=== PATIENT | female | born 1955 | race Caucasian/White ===

== ENCOUNTER 2021-02-07 15:37 | Outpatient (REF) | payer MEDICARE, OTHER, SELFPAY ==
--- NOTE | ~2021-02-07 | XR_ITS ---
EXAMINATION: XR WRIST, RIGHT CLINICAL INFORMATION: Pain COMPARISON: None TECHNIQUE: Four views of the right wrist. FINDINGS: Bone alignment is normal. No fracture or dislocation is seen. Joint spaces are normal. Soft tissues are normal. XR/XR wrist RT 2V IMPRESSION: Normal right wrist.
== END 2021-02-07 15:38 | disposition home or self-care (01) ==
LOC: HO.XRAY 15:37
PROVIDERS: PCP Internal Medicine; Visit Provider Internal Medicine
DX: M25.531 Pain in right wrist (principal)
CPT/HCPCS: 73100

== ENCOUNTER 2021-03-26 09:43 | Outpatient (REF) | payer MEDICARE, OTHER, SELFPAY ==
[2021-03-26 11:32] LABS: TSH reflex Free T4 0.02 uIU/mL (0.32-4.0)
[2021-03-26 12:05] LABS: Free T4 (Free Thyroxine) 1.26 ng/dL (0.71-1.85)
== END 2021-03-26 09:44 | disposition home or self-care (01) ==
LOC: HO.LAB 09:43
PROVIDERS: PCP Internal Medicine; Visit Provider Internal Medicine Endocrinology, Diabetes & Metabolism
DX: E03.9 Hypothyroidism, unspecified (principal)
CPT/HCPCS: 36415; 84439; 84443

== ENCOUNTER → 2021-05-29 08:04 | Outpatient (BNVA) | payer MEDICARE, OTHER, SELFPAY | PROVIDERS: PCP Internal Medicine; Visit Provider Physician Assistant | DX: M65.4 Radial styloid tenosynovitis [de Quervain] (principal) | CPT/HCPCS: 20550; 99202; J3300 ==

== ENCOUNTER 2021-06-05 07:44 | Outpatient (RCR) | payer MEDICARE, OTHER, SELFPAY ==
--- NOTE | 2021-06-05 14:36 | MHC.OT.OEV ---
[address] [phone] F: [phone] Occupational Therapy Evaluation Diagnosis: Right Dequervains Disease Date of Onset: 05/29/21 Date of Surgery: Attending Provider: Lennox Grande Prescribed Treatment: Eval and treat MD Follow Up Appointment: History of Current Condition: Pt reports a one year ho right wrist pain, she delayed treatment due to Covid 19 restrictions... 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 Living Situation, Family and/or Social Support: Current Level of Function and Occupation Self Care, Employment, Leisure: Indep with all ADL and homemaking and cat care Currently has 9 cats requiring care, alot of laundry with towels, Pham litter.Transporting towels.. Pain with lifting, managing towels Sleep: WNL Driving: WNL Vision: Balance: Pain Assessment Pain Score: 2 Pain Scale Used: Numeric (0 - 10) Pain Location and Description: 2 ache , right radial wrist Aggravating Factors: Lifting, moving /packing towels Alleviating Factors: Skin and Soft Tissue Assessment Skin and Soft Tissue: Comments: Mild radial wrist edema Nerve assessment Ulnar Nerve: Not Tested Median Nerve: Not Tested Radial Nerve: Not Tested Comments: Sensory Assessment Temperature: Light Touch: WNL Proprioception: Vibration: Comments: Edema Assessment Upper Extremity: Lower Extremity: Comments: right mild circumference at radial styloid, right 5.8 cm....left 5.5 cm Dexterity Assessment Dexterity: WNL Comments: Special Tests Comments: AROM(PROM) Strength Cervical Cervical Flexion: Cervical Extension: Cervical Lateral Flexion: Cervical Rotation: Comments: Shoulder Flexion: Extension: Abduction: Internal Rotation: External Rotation: Comments: Flexion: Extension: Abduction: Internal Rotation: External Rotation: Comments: Elbow Flexion: Extension: Pronation: Supination: Comments: Flexion: Extension: Pronation: Supination: Comments: Wrist Flexion: r 70 l 75 Extension: 55 55 Ulnar Deviation: 30 25 Radial Deviation: 5 15 Comments: Discomfort with radial dev on the right Flexion: Extension: Ulnar Deviation: Radial Deviation: Comments: Thumb Thumb CMC Flexion: Thumb MCP Flexion: Thumb IP Flexion: Radial Abduction: Palmar Abduction: [place] (Kapandji 0-10): Comments: WNL Digits Index MCP: PIP: DIP: Long MCP: PIP: DIP: Ring MCP: PIP: DIP: Small MCP: PIP: DIP: Comments: WNL HO right ring trigger finger and left trigger thumb Gross Grasp: r 35 lb......l 30 lb Lateral Pinch: 10 10 Two-Point Pinch: 6 5 Three-Jaw [place]: 9 8 Comments: Painfree Patient Education Primary Language: Amharic Learning Operations Specialist Required: No Current Knowledge: Understands information with skills for self-management Teaching Method: Demonstration Handouts Verbal Education Needs Identified on Evaluation: How did patient/family demonstrate learning? Patient demonstrates Patient verbalizes Barriers to Learning: None Readiness for Learning: Accepting Who was educated? Patient Comments: Pt ed on wrist protection/ Dequervains precautions ..activitiy modification Oval 8 wear and care for night splint for right trigger finger and left trigger thumb Plan of Care Assessment: Pt is one week s/p injection for right Dequervains with and excellent result. She will benefit from implementing the HEP and jt protection techniques she practiced here today in OT. Printed instructions provided. Skilled OT is not needed at this time. STG Duration: Short Term Goals: NA LTG Duration: Breastfeeding Program Coordinator Goals: NA Frequency and Duration: The patient will be seen NA Treatment Plan: Home Exercise Program Electronically Signed By: Ute Hernandez OT CHT CLT Reviewed/agree with student documentation: N/A Therapist: Please sign and return to therapist, Thank you for your referral.
--- NOTE | 2021-06-05 14:37 | MHC.OT.DC ---
[address] [phone] F: [phone] Occupational Therapy Discharge Note Provider: Lennox Grande Diagnosis: Right Dequervains Disease Date of Surgery: Date of Evaluation: 06/05/21 Date of Discharge: 06/05/21 Treatments to Date: 1 Cancellations to Date: No Shows to Date: Discharge Status: Achieved Goals Improved Function Independent with HEP Discharge Summary: See eval for details Right Dequervains improved after injection last week. Mild edema noted. ROM, strength and function WFL. Pt with unrelated right ring finger trigger and left thumb trigger . I fit and provided Oval 8 right PIPj flexion block for night wear, and left IP jt flexion block. Pt not wearing the aluminum splint provided by her MD. Skilled OT not needed at this time Electronically Signed By: Ute Hernandez OT CHT CLT Reviewed/agree with student documentation: N/A Therapist: Please Sign and return to therapist, thank you for your referral.
== END 2022-01-28 10:52 | disposition home or self-care (01) ==
LOC: HO.OT 07:44
PROVIDERS: PCP Internal Medicine; Visit Provider Physician Assistant
DX: M65.4 Radial styloid tenosynovitis [de Quervain] (principal)
CPT/HCPCS: 97110; 97165

== ENCOUNTER 2021-06-13 08:22 | Outpatient (REF) | payer MEDICARE, OTHER, SELFPAY ==
[2021-06-13 09:56] LABS: Alanine Aminotransferase 14 U/L (0-31); Albumin Level 4.3 g/dL (3.5-5.0); Alkaline Phosphatase 85 U/L (39-117); Anion Gap 10 (12-20); Aspartate Amino Transferase 15 U/L (5-31); Bilirubin Total 0.5 mg/dL (0.0-1.0); Blood Urea Nitrogen 18 mg/dL (9-16); Calcium 9.4 mg/dL (8.4-10.2); Carbon Dioxide 29 mmol/L (22-29); Chloride 107 mmol/L (96-108); Cholesterol 206 mg/dL; Estimated Glomerular Filt Rate > 60; Glucose Fasting 84 mg/dL (60-99); HDL Cholesterol 64 mg/dL; LDL Cholesterol Calculated 130 mg/dl; Potassium 4.6 mmol/L (3.3-5.1); Sodium 141 mmol/L (135-145); Total Protein 6.6 g/dL (6.5-8.0); Triglycerides 61 mg/dL
== END 2021-06-13 08:23 | disposition home or self-care (01) ==
LOC: HO.LAB 08:22
PROVIDERS: PCP Internal Medicine; Referring Provider Internal Medicine; Visit Provider Nurse Practitioner Family
DX: Z13.220 Encounter for screening for lipoid disorders (principal); Z13.1 Encounter for screening for diabetes mellitus
CPT/HCPCS: 36415; 80053; 80061

== ENCOUNTER 2021-07-18 13:01 | Outpatient (REF) | payer MEDICARE, OTHER, SELFPAY ==
--- NOTE | ~2021-07-18 | US_ITS ---
EXAMINATION: ULTRASOUND EXTREMITY NONVASCULAR CLINICAL INFORMATION: Soft tissue soft lump over the right clavicle/shoulder COMPARISON: None TECHNIQUE: Grayscale and color imaging of the soft tissues over the right shoulder performed using a linear transducer. FINDINGS: There is an oval-shaped 1.9 x 1.8 x 0.7 cm hypoechoic lesion just deep to the skin corresponding to palpable abnormality. This demonstrates minimal peripheral vascularity. Ultrasound appearance would be consistent with a lipoma. 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
--- NOTE | ~2021-07-18 | MM_ITS ---
EXAMINATION: BONE DENSITOMETRY CLINICAL INDICATION: Asymptomatic menopausal state. COMPARISON: None (current study represents initial baseline exam). TECHNIQUE: Using a [employer] DXA System (software version: 13.1) manufactured by [employer], dual-energy x-ray absorptiometry was performed of the lumbar spine and left hip. The images are of good technical quality. Summary results are attached. FINDINGS: AP SPINE L1-L4: BMD 0.733 g/cm2, Z-score -1.9, T-score -3.7, osteoporosis. LEFT FEMUR, NECK: BMD 0.656 g/cm2, Z-score -1.1, T-score -2.7, osteoporosis. LEFT FEMUR, TOTAL: BMD 0.726 g/cm2, Z-score -0.8, T-score -2.2, osteopenia. IDENTIFIED RISK FACTORS: Menopause, hysterectomy, family history (parental hip fracture). HISTORY OF FRACTURE: None listed. MEDICATIONS: Calcium supplements or multivitamin, vitamin D. MM/XR DEXA axial skeleton IMPRESSION: 1. DIAGNOSIS: Osteoporosis based on the lowest T-score value of -3.7 in the lumbar spine applying World Health Organization criteria. 2. 10-YEAR FRACTURE RISK PREDICTION, FRAX: According to the guidelines, FRAX calculation should only be performed on patients in the osteopenia bone density category. Therefore, FRAX was not performed on this patient. 3. Treatment Recommendations: NOF guidelines recommend consideration for treatment in postmenopausal women and men age 50 and older presenting with the following: -A hip or vertebral (clinical or morphometric) fracture. -T-score less than or equal to -2.5 at the femoral neck or spine after appropriate evaluation to exclude secondary causes. -Low bone mass at the hip or spine and a 10-year fracture probability by FRAX of greater than or equal to 3% for hip fracture or greater than or equal to 20% for major osteoporotic fracture based on the [place] adapted WHO algorithm. 4. Other Recommendations: All treatment decisions require clinical judgment and consideration of individual patient factors, including patient preferences, comorbidities, previous drug use, risk factors not captured in the FRAX model (e.g. frailty, falls, vitamin D deficiency, increased bone turnover, interval significant decline in bone density) and possible under or overestimation of fracture risk by FRAX. Additional medical evaluation for secondary cause of low bone mineral density may be appropriate. FUTURE SCAN RECOMMENDATION: People with diagnosed cases of osteoporosis or at high risk for fracture should have regular bone mineral density tests. For patients eligible for Medicare, routine testing is allowed once every 2 years. The testing frequency can be increased to one year for patients who have rapidly progressing disease, those who are receiving or discontinuing medical therapy to restore bone mass, or have additional risk factors.
== END 2021-07-18 13:02 | disposition home or self-care (01) ==
LOC: HO.MAMMO 13:01
PROVIDERS: PCP Internal Medicine; Visit Provider Nurse Practitioner Family
DX: Z13.820 Encounter for screening for osteoporosis (principal); R22.9 Localized swelling, mass and lump, unspecified; M81.0 Age-related osteoporosis without current pathological fracture; Z78.0 Asymptomatic menopausal state; Z79.899 Other long term (current) drug therapy; Z98.890 Other specified postprocedural states
CPT/HCPCS: 76882; 77080

== ENCOUNTER → 2021-09-06 09:02 | Outpatient (BNVA) | payer MEDICARE, OTHER, SELFPAY | PROVIDERS: PCP Internal Medicine; Referring Provider Internal Medicine; Visit Provider Surgery | DX: D17.9 Benign lipomatous neoplasm, unspecified (principal) | CPT/HCPCS: 99202 ==

== ENCOUNTER 2022-03-19 10:00 | Outpatient (REF) | payer MEDICARE, OTHER, SELFPAY ==
--- NOTE | 2022-03-19 10:15 | ECG_ITS ---
Test Reason : SYNCOPE Blood Pressure : / mmHG Vent. Rate : 067 BPM Atrial Rate : 067 BPM P-R Int : 130 ms QRS Dur : 076 ms QT Int : 396 ms P-R-T Axes : 028 019 030 degrees QTc Int : 418 ms Normal sinus rhythm Normal ECG No previous ECGs available Referred By: Armando Srinivasan Electronically Signed By:HENRY WAGNER MD
[2022-03-19 10:36] LABS: Basophils Percent Auto 0.8 % (0-2); Eosinophils Absolute Auto 0.3 X10*3/uL (0.0-0.4); Eosinophils Percent Auto 5.2 % (0-4); Hematocrit 43.2 % (37.0-47.0); Hemoglobin 14.2 g/dl (12.0-16.0); Imm Gran Abs Auto 0.01 X10*3/uL (0.00-0.03); Imm Gran Pct Auto 0.2 % (0.0-0.4); Lymphocytes Absolute Auto 1.8 X10*3/uL (1.2-4.9); Lymphocytes Percent Auto 36.6 % (20-40); MANUAL DIFF FLAG NO; Mean Corpuscular HGB Conc 32.9 g/dl (31.0-35.0); Mean Corpuscular Hemoglobin 29.1 pg (27.0-33.0); Mean Corpuscular Volume 88.5 fL (80.0-98.0); Mean Platelet Volume 10.7 fL (9.4-12.3); Monocytes Absolute Auto 0.6 X10*3/uL (0.1-1.2); Monocytes Percent Auto 11.7 % (2-11); Neutrophils Absolute Auto 2.3 x10*3/uL (2.0-8.3); Neutrophils Percent Auto 45.5 % (45-73); Platelet Count 255 X10*3/uL (160-400); Red Blood Count 4.88 X10*6/uL (4.20-5.50); Red Cell Distribution Width 13.6 % (11.0-16.0)
[2022-03-19 12:28] LABS: Anion Gap 13 (12-20); Blood Urea Nitrogen 17 mg/dL (9-16); Calcium 9.7 mg/dL (8.4-10.2); Carbon Dioxide 25 mmol/L (22-29); Chloride 107 mmol/L (96-108); Estimated Glomerular Filt Rate > 60; Glucose Random 104 mg/dL (60-115); Potassium 4.2 mmol/L (3.3-5.1); Sodium 141 mmol/L (135-145)
== END 2022-03-19 10:01 | disposition home or self-care (01) ==
LOC: HO.LAB 10:00
PROVIDERS: PCP Internal Medicine; Visit Provider Internal Medicine
DX: R55 Syncope and collapse (principal); R51.9 Headache, unspecified; Z13.0 Encounter for screening for diseases of the blood and blood-forming organs and certain disorders involving the immune mechanism
CPT/HCPCS: 36415; 80048; 85025; 93005

== ENCOUNTER 2022-05-22 10:03 | Outpatient (REF) | payer MEDICARE, OTHER, SELFPAY | END 2022-05-22 10:04 | disposition home or self-care (01) | LOC: HO.WFDLDS 10:03 | PROVIDERS: Visit Provider Internal Medicine Endocrinology, Diabetes & Metabolism | DX: E03.9 Hypothyroidism, unspecified (principal) | CPT/HCPCS: 36415; 84443 ==

== ENCOUNTER 2023-05-18 08:35 | Outpatient (REF) | payer MEDICARE, OTHER, SELFPAY ==
[2023-05-18 11:21] LABS: MANUAL DIFF FLAG NO
[2023-05-18 12:06] LABS: Basophils Absolute Auto 0.1 X10*3/uL (0.0-0.2); Basophils Percent Auto 1.5 % (0-2); Eosinophils Absolute Auto 0.2 X10*3/uL (0.0-0.4); Eosinophils Percent Auto 3.6 % (0-4); Hematocrit 42.2 % (37.0-47.0); Hemoglobin 13.8 g/dl (12.0-16.0); Lymphocytes Absolute Auto 1.7 X10*3/uL (1.2-4.9); Mean Corpuscular HGB Conc 32.7 g/dl (31.0-35.0); Mean Corpuscular Hemoglobin 29.3 pg (27.0-33.0); Mean Corpuscular Volume 89.6 fL (80.0-98.0); Mean Platelet Volume 11.4 fL (9.4-12.3); Monocytes Absolute Auto 0.6 X10*3/uL (0.1-1.2); Monocytes Percent Auto 13.3 % (2-11); Neutrophils Absolute Auto 1.6 x10*3/uL (2.0-8.3); Neutrophils Percent Auto 39.6 % (45-73); Platelet Count 252 X10*3/uL (160-400); Red Blood Count 4.71 X10*6/uL (4.20-5.50); Red Cell Distribution Width 13.8 % (11.0-16.0); White Blood Count 4.1 X10*3/uL (4.8-10.8)
[2023-05-18 12:23] LABS: Alanine Aminotransferase 20 U/L (0-31); Albumin Level 4.2 g/dL (3.5-5.0); Alkaline Phosphatase 72 U/L (39-117); Anion Gap 11 (12-20); Aspartate Amino Transferase 20 U/L (5-31); Bilirubin Total 0.7 mg/dL (0.0-1.0); Blood Urea Nitrogen 13 mg/dL (9-16); Calcium 9.6 mg/dL (8.4-10.2); Carbon Dioxide 24 mmol/L (22-29); Chloride 109 mmol/L (96-108); Cholesterol 213 mg/dL (<200); Estimated Glomerular Filt Rate > 60; Glucose Fasting 83 mg/dL (60-99); HDL Cholesterol 63 mg/dL (>40); LDL Cholesterol Calculated 136 mg/dL (<100); Potassium 4.1 mmol/L (3.3-5.1); Sodium 140 mmol/L (135-145); Total Protein 6.9 g/dL (6.5-8.0); Triglycerides 73 mg/dL (<150)
[2023-05-18 12:29] LABS: Thyroid Stimulating Hormone 1.38 uIU/mL (0.32-4.0)
== END 2023-05-18 08:36 | disposition home or self-care (01) ==
LOC: HO.WFDLDS 08:35
PROVIDERS: Visit Provider Internal Medicine
DX: Z13.0 Encounter for screening for diseases of the blood and blood-forming organs and certain disorders involving the immune mechanism (principal); I10 Essential (primary) hypertension; E03.9 Hypothyroidism, unspecified; E78.5 Hyperlipidemia, unspecified
CPT/HCPCS: 36415; 80053; 80061; 84443; 85025

== ENCOUNTER 2023-05-22 09:58 | Outpatient (AMB) | payer MEDICARE, OTHER, SELFPAY ==
--- NOTE | 2023-05-22 10:01 | AM.OFFVISMDC ---
Intake Vital Signs 05/22/23 10:06 Height 5 ft 1 in Weight 129 lb 8 oz BMI 24.5 BP 100/70 Blood Pressure Location Lt brachial Position Sitting Pulse 60 Pulse Source Pulse Oximeter Pulse Oximetry (%) 99 Oxygen Delivery Method Room Air Intake Visit Reasons: SWV Intake Note: Patient is here for an Annual Wellness Visit. 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 Supervisor Propellant Charge Loading: Supervisor Propellant Charge Loading offered & declined Accompanied by: Self / Same As Patient Allergies acetaminophen [From Percocet] Allergy (Unknown, Verified 05/22/23 10:05) Palpitations erythromycin base Allergy (Unknown, Verified 05/22/23 10:05) Nausea oxycodone [From Percocet] Allergy (Unknown, Verified 05/22/23 10:05) Palpitations Medication List - Last Reconciled 05/22/23 by Armando Srinivasan MD citalopram 20 mg PO DAILY Synthroid (levothyroxine) 100 mcg PO I tab 6 days a week and 1.5 tabs 1 day a week; no subs 90 days NS HPI SWV HPI Details hypothyroidism and depression on rx; doing well PFSH Medical History Lump of skin Post-menopausal Screening for diabetes mellitus Screening for hyperlipidemia Surgical History History of colonoscopy History of excision of mass History of partial hysterectomy History of thyroidectomy Family History Father No problems noted. Mother Substance use disorder Social History Housing: House Alcohol intake: never Patient Tobacco Use Status: Never used Tobacco e-Cigarette/Vaping Use: Never Used Second Hand Smoke Exposure: No service: No Current occupational status: retired Cognitive needs: No Hearing needs: No Vision needs: No Questionnaire Medicare Wellness Checkup [age] 65-68 What gender do you identify with?: female During the past 4 weeks, how much have you been bothered by emotional problems such as feeling anxious, depressed, irritable, sad or downhearted, and blue?: not at all During the past 4 weeks, has your physical & emotional health limited your social activities with family, friends, neighbors, or groups?: not at all During the past 4 weeks, how much bodily pain have you generally had?: moderate pain During the past 4 weeks, was someone available to help you if you needed & wanted help?: yes, as much as I wanted During the past 4 weeks, what was the hardest physical activity you could do for at least 2 minutes?: heavy Can you get to places out of walking distance without help? (For eg., can you travel alone on buses, taxis or drive your car?): Yes Can you go shopping for groceries or clothes without someone's help?: Yes Can you prepare your own meals?: Yes Can you do your housework without help?: Yes Because of any health problems, do you need the help of another person with your personal care needs such as eating, bathing, dressing or getting around the house?: No Can you handle your own money without help?: Yes During the past 4 weeks, how would you rate your health in general?: very good During the past 4 weeks how have things been going for you?: very well; could hardly better Are you having difficulties driving your car?: no Do you always fasten your seat belt when you are in a car?: yes, usually During past 4 weeks, have you been bothered by the following: never: Falling or dizzy when standing up, Sexual problems?, Trouble eating well?, Teeth or denture problems?, Problems using the telephone? and Tiredness or fatigue? Have you fallen 2 or more times in the past year?: No Are you afraid of falling?: No Are you a smoker?: no During the past 4 weeks, how many drinks of wine, beer, or other alcoholic beverages did you have?: no alcohol at all Do you exercise for about 20 minutes 3 or more times a week?: yes, all the time Have you been given information to help with the following?: yes: Keeping track of your medications? and no: Hazards in your house that might hurt you? How often do you have trouble taking medicines the way you have been told to take them?: I always take medicine as prescribed How confident are you that you can control & manage most of your health problems?: very confident What is your race?: White Mini Mental State Exam (MMSE) Orientation What is the (year) (season) (date) (day) (month)?: year, season, date, day and month Where are we (state) (county) (town or city) (hospital) (floor)?: state, county, town or city, hospital/clinic and floor Score Score: 10 Activity of Daily Living Bathing - sponge bath, tub bath or shower: receives no assistance (gets in/out by self, if usual bathing means Dressing - getting clothes from closets & drawers, including inner/outer garments & fasteners.: gets clothes & gets completely dressed without help Toileting - going to the 'toilet room' for urine/bowel elimination & cleaning self/arranging clothes: goes to toilet room, cleans self, arranges clothes without help Transfer: moves in & out of bed and chair without help (may use support object) Continence: controls urination/bowel movements completely by self Feeding: feeds self without help Total Score: 0 Using telephone: independent Traveling: independent Shopping: independent Preparing meals: independent Housework: independent Taking medicine: independent Managing money: independent PHQ-9 Over the last 2 weeks, how often have you been bothered by any of the following problems? 1. Little interest or pleasure in doing things: not at all 2. Feeling down, depressed, or hopeless: not at all 3. Trouble falling or staying asleep, or sleeping too much: not at all 4. Feeling tired or having little energy: not at all 5. Poor appetite or overeating: not at all 6. Feeling bad about yourself - or that you are a failure or have let yourself or your family down: not at all 7. Trouble concentrating on things, such as reading the newspaper or watching television: not at all 8. Moving or speaking so slowly that other people could have noticed. Or the opposite - being so fidgety or restless that you have been moving around a lot more than usual: not at all 9. Thoughts that you would be better off or of hurting yourself in some way: not at all Total score: 0 Depression Screening Interpretation: Negative 30861 - PHQ-9 Billing: Yes Source: Developed by Drs. Willie Brown, Kyra Tran, Kobi Grande and colleagues, with an educational seb from [employer]. Thrive Questionnaire Date Thrive assessed: 05/22/23 I am a: Patient What is your living situation today?: I have a steady place to live Within the past 12 months, did the food you bought not last and you didn't have the money to get more?: Never true Within the past 12 months, did you worry whether your food would run out before you got money to buy more?: Never true Do you have trouble paying for medicines?: No Do you have trouble getting transportation to medical appointments?: No Do you have trouble paying your heating and electricity bill?: No Do you have trouble taking care of your child, family member or friend?: No Do you have trouble with day-to-day activities such as bathing, preparing meals, shopping, managing finances, etc.?: No Are you currently unemployed and looking for a job?: No Are you interested in more education?: No Currently or been in a relationship where the following occur: no concerns reported BRI-7 AMB Questionnaire BRI-7 Date BRI - 7 assessed: 05/22/23 Feeling nervous, anxious, or on edge: 0 = Not at all Not being able to stop or control worryin = Not at all Worrying too much about different things: 0 = Not at all Trouble relaxin = Not at all Being so restless that it is hard to sit still: 0 = Not at all Becoming easily annoyed or irritable: 0 = Not at all Feeling afraid as if something awful might happen: 0 = Not at all Total BRI-7 score (0-4 normal; 5-9 mild; 10-14 moderate; 15-21 severe): 0 Source: Developed by Drs. Willie Brown, Kyra Tran, Kobi Grande and colleagues, with an educational seb from [employer]. BRI-7 Assessment Billing BRI-7 Assessment Tool: BRI-7 Assessment 76755 AUDIT C Alcohol Use Questionnaire (AUDIT-C) 1. How often do you have a drink containing alcohol?: Never Total Score: 0 Review of Systems Const Denies chills, Denies fatigue, Denies headache(s) and Denies weight loss Eyes Denies change in vision, Denies diplopia and Denies eye pain ENT Reports Normal hearing present, Denies vertigo, Denies dizziness, Denies headache(s) and Denies nasal discharge Card Denies chest pain, Denies rapid heart rate and Denies dyspnea on exertion Resp Denies chest congestion, Denies cough, Denies pain with cough and Denies dyspnea on exertion GI Denies abdominal pain, Denies hematochezia and Denies change in bowel habits Musc Denies myalgias, Denies arthralgias and Denies joint swelling Skin/Breast Denies lesions and Denies unusual bruising Neuro Reports Normal hearing present, Denies vertigo, Denies dizziness, Denies headache(s) and Denies focal weakness Endo Denies fatigue Physical Exam Vital Signs: Last Vital Signs Pulse 60 05/22/23 10:06 BP 100/70 05/22/23 10:06 Pulse Ox 99 05/22/23 10:06 Oxygen Delivery Method Room Air 05/22/23 10:06 BMI result Body Mass Index 24.5 Neuro Cranial nerves: Yes Normal hearing present Assessment & Plan Assessment & Plan (1) Encounter for initial annual wellness visit (AWV) in Medicare patient: Code(s): Z00.00 - Encounter for general adult medical examination without abnormal findings Plan: xiang (2) Hypothyroidism: Code(s): E03.9 - Hypothyroidism, unspecified Plan: stable; same rx (3) Depression: Code(s): F32.9 - Major depressive disorder, single episode, unspecified Plan: stable; same rx Orders: Orders Thyroid Stimulating Hormone Today E03.9 - Hypothyroidism, unspecified Quality Reporting (2019) Depression/Bipolar (159/160/161/177) PHQ-9: Total score: 0 Coding Level of Care Code Medicare Subsequent (G0439) Diagnoses Encounter for initial annual wellness visit (AWV) in Medicare patient Z00.00 Hypothyroidism E03.9 Depression F32.9 CPT Codes Advance Care Planning - Advance Care Planning discussion: On file, no changes ([id number]) Additional Codes BRI-7 Assessment Billing - BRI-7 Assessment Tool: BRI-7 Assessment 95197 ([id number]) Advance Care Planning Advance Care Planning discussion: On file, no changes Forms completed: Health Care Proxy
[2023-05-22 10:06] VITALS: BP 100/70; PULSE 60; O2SAT 99; BMI 24.5
== END 2023-05-22 11:12 | disposition home or self-care (01) ==
PROVIDERS: Visit Provider Internal Medicine
DX: Z00.00 Encounter for general adult medical examination without abnormal findings (principal); E03.9 Hypothyroidism, unspecified; F33.9 Major depressive disorder, recurrent, unspecified; Z90.711 Acquired absence of uterus with remaining cervical stump
CPT/HCPCS: 1123F; G0439

== ENCOUNTER 2023-12-14 14:03 | Outpatient (AMB) | payer MEDICARE, OTHER, SELFPAY ==
[2023-12-14 14:04] VITALS: BP 126/70; PULSE 75; O2SAT 98; BMI 24.9
--- NOTE | 2023-12-14 14:04 | A.OFFPC_ITS ---
Vital Signs 12/14/23 14:04 Height 5 ft 1 in Weight 132 lb BMI 24.9 BP 126/70 Blood Pressure Location Lt brachial Position Sitting Pulse 75 Pulse Source Pulse Oximeter Pulse Oximetry (%) 98 Oxygen Delivery Method Room Air Intake Visit Reasons: pain lower left quadrant Dish Technician Required: No Progressive Assembler And Fitter: Not Required per policy Accompanied by: Self / Same As Patient Allergies acetaminophen [From Percocet] Allergy (Unknown, Verified 12/14/23 14:04) Palpitations erythromycin base Allergy (Unknown, Verified 12/14/23 14:04) Nausea oxycodone [From Percocet] Allergy (Unknown, Verified 12/14/23 14:04) Palpitations Medication List - Last Reconciled 12/15/23 by Armando Srinivasan MD amoxicillin-pot clavulanate 875-125 mg 1 tab PO BID citalopram 20 mg PO DAILY Synthroid (levothyroxine) 100 mcg PO I tab 6 days a week and 1.5 tabs 1 day a week; no subs 90 days NS Tobacco use date assessed: 12/14/23 Fall risk assessment: No Falls in past year Last assessed Fall Risk: 12/14/23 Dental Screening Dental Screen Date: 12/14/23 Did you have a dental visit in the last 12 months?: Yes Did you have a dental problem in the last 6 months where you did not have access to dental care?: No Was dental information given to patient?: Patient has dentist HPI pain lower left quadrant HPI Details LLQ abd pain and loose stoolos for a few weeks; better on rx PFSH Medical History Lump of skin Post-menopausal Screening for diabetes mellitus Screening for hyperlipidemia Surgical History History of excision of mass History of colonoscopy History of thyroidectomy History of partial hysterectomy Family History Father No problems noted. Mother Substance use disorder Social History Housing: House Alcohol intake: never Patient Tobacco Use Status: Never used Tobacco e-Cigarette/Vaping Use: Never Used Second Hand Smoke Exposure: No service: No Current occupational status: retired Cognitive needs: No Hearing needs: No Vision needs: No Questionnaire PHQ-9 Over the last 2 weeks, how often have you been bothered by any of the following problems? 1. Little interest or pleasure in doing things: not at all 2. Feeling down, depressed, or hopeless: not at all 3. Trouble falling or staying asleep, or sleeping too much: not at all 4. Feeling tired or having little energy: not at all 5. Poor appetite or overeating: not at all 6. Feeling bad about yourself - or that you are a failure or have let yourself or your family down: not at all 7. Trouble concentrating on things, such as reading the newspaper or watching television: not at all 8. Moving or speaking so slowly that other people could have noticed. Or the opposite - being so fidgety or restless that you have been moving around a lot more than usual: not at all 9. Thoughts that you would be better off or of hurting yourself in some way: not at all Total score: 0 Depression Screening Interpretation: Negative Depression Screening Done: Yes 68096 - PHQ-9 Billing: Yes Source: Developed by Drs. Willie Brown, Kyra Tran, Kobi Grande and colleagues, with an educational seb from [employer]. Thrive Questionnaire Date Thrive assessed: 12/14/23 I am a: Patient What is your living situation today?: I have a steady place to live Within the past 12 months, did the food you bought not last and you didn't have the money to get more?: Never true Within the past 12 months, did you worry whether your food would run out before you got money to buy more?: Never true Do you have trouble paying for medicines?: No Do you have trouble getting transportation to medical appointments?: No Do you have trouble paying your heating and electricity bill?: No Do you have trouble taking care of your child, family member or friend?: No Do you have trouble with day-to-day activities such as bathing, preparing meals, shopping, managing finances, etc.?: No Are you currently unemployed and looking for a job?: No Are you interested in more education?: No Please select the resources that you would like help with: None THRIVE Score: 0 AUDIT C Alcohol Use Questionnaire (AUDIT-C) 1. How often do you have a drink containing alcohol?: Never Total Score: 0 BRI-7 AMB Questionnaire BRI-7 Date BRI - 7 assessed: 12/14/23 Feeling nervous, anxious, or on edge: 0 = Not at all Not being able to stop or control worryin = Not at all Worrying too much about different things: 0 = Not at all Trouble relaxin = Not at all Being so restless that it is hard to sit still: 0 = Not at all Becoming easily annoyed or irritable: 0 = Not at all Feeling afraid as if something awful might happen: 0 = Not at all Total BRI-7 score (0-4 normal; 5-9 mild; 10-14 moderate; 15-21 severe): 0 Source: Developed by Drs. Willie Brown, Kyra Tran, Kobi Grande and colleagues, with an educational seb from [employer]. Review of Systems Const Denies chills, Denies headache(s) and Denies weight loss ENT Denies headache(s) Card Denies chest pain, Denies syncope, Denies irregular heart rhythm and Denies dyspnea Resp Denies chest congestion, Denies cough and Denies dyspnea GI Denies nausea and Denies vomiting Musc Denies deformity and Denies joint swelling Neuro Denies syncope and Denies headache(s) Physical exam (Primary Care) Vital Signs: Last Vital Signs Pulse 75 12/14/23 14:04 BP 126/70 12/14/23 14:04 Pulse Ox 98 12/14/23 14:04 Oxygen Delivery Method Room Air 12/14/23 14:04 BMI result Body Mass Index 24.9 Tobacco/Smoking Status: Tobacco use Status Tobacco use date assessed 12/14/23 12/14/23 14:09 Patient Tobacco Use Status Never used Tobacco 12/14/23 14:09 e-Cigarette/Vaping Use Never Used 12/14/23 14:09 PHQ-9: PHQ-9 Score PHQ-9: Total score 0 12/14/23 14:09 Depression Screening Interpretation: Negative Thrive Assessment: Date of Thrive Assessment Date Thrive assessed 12/14/23 12/14/23 14:09 Const General: cooperative, comfortable, no acute distress and alert Neck Neck: Yes no lymphadenopathy Thyroid: Thyroid normal Resp Effort & Inspection: normal respiratory effort Auscultation: clear to auscultation bilaterally Percussion: percussion normal Cardio Jugular venous distension: no JVD Palpation: normal PMI Rate: regular rate Rhythm: regular rhythm Heart sounds: S1 normal heart sound present and S2 normal heart sound present GI Inspection: Yes normal to inspection Palpation (GI): No hepatosplenomegaly present Skin General skin exam: no rashes or lesions noted Extrem General: Yes no clubbing, cyanosis or edema Assessment and Plan Assessment & Plan (1) Diverticulitis: Code(s): K57.92 - Diverticulitis of intestine, part unspecified, without perforation or abscess without bleeding Plan: labs US and rx; gi ref Orders: Orders Basic Metabolic Panel 12/14/23 K57.92 - Diverticulitis of intestine, part unspecified, without perforation or abscess without bleeding US abdomen complete 12/14/23 R10.9 - Unspecified abdominal pain Complete Blood Count Auto Diff 12/14/23 D64.9 - Anemia, unspecified Referrals Gastroenterology Referral K57.92 - Diverticulitis of intestine, part unspecified, without perforation or abscess without bleeding Medications: New amoxicillin-pot clavulanate 875-125 mg 1 tab PO BID 20 tabs 0RF Coding Level of Care Code Est Pt Level 3 (15872) Diagnoses Diverticulitis K57.92
== END 2023-12-14 14:25 | disposition home or self-care (01) ==
PROVIDERS: PCP Internal Medicine; Visit Provider Internal Medicine
DX: R10.32 Left lower quadrant pain (principal); R19.7 Diarrhea, unspecified
CPT/HCPCS: 99214

== ENCOUNTER 2023-12-14 14:31 | Outpatient (REF) | payer MEDICARE, OTHER, SELFPAY ==
[2023-12-14 14:45] LABS: MANUAL DIFF FLAG NO
[2023-12-14 14:50] LABS: Basophils Absolute Auto 0.1 X10*3/uL (0.0-0.2); Eosinophils Absolute Auto 0.1 X10*3/uL (0.0-0.4); Eosinophils Percent Auto 2.1 % (0-4); Hematocrit 40.7 % (37.0-47.0); Hemoglobin 13.7 g/dl (12.0-16.0); Imm Gran Abs Auto 0.01 X10*3/uL (0.00-0.03); Imm Gran Pct Auto 0.2 % (0.0-0.4); Lymphocytes Absolute Auto 1.6 X10*3/uL (1.2-4.9); Lymphocytes Percent Auto 31.5 % (20-40); Mean Corpuscular HGB Conc 33.7 g/dl (31.0-35.0); Mean Corpuscular Hemoglobin 29.3 pg (27.0-33.0); Mean Corpuscular Volume 87.2 fL (80.0-98.0); Mean Platelet Volume 9.9 fL (9.4-12.3); Monocytes Absolute Auto 0.5 X10*3/uL (0.1-1.2); Monocytes Percent Auto 9.6 % (2-11); Neutrophils Absolute Auto 2.9 x10*3/uL (2.0-8.3); Neutrophils Percent Auto 55.6 % (45-73); Platelet Count 267 X10*3/uL (160-400); Red Blood Count 4.67 X10*6/uL (4.20-5.50); Red Cell Distribution Width 13.4 % (11.0-16.0); White Blood Count 5.2 X10*3/uL (4.8-10.8)
[2023-12-14 15:31] LABS: Anion Gap 12 (12-20); Blood Urea Nitrogen 15 mg/dL (9-16); Carbon Dioxide 25 mmol/L (22-29); Chloride 109 mmol/L (96-108); Estimated Glomerular Filt Rate > 60; Glucose Random 90 mg/dL (60-115); Potassium 4.2 mmol/L (3.3-5.1); Sodium 142 mmol/L (135-145)
[2023-12-14 15:52] LABS: Thyroid Stimulating Hormone 0.27 uIU/mL (0.32-4.0)
== END 2023-12-14 14:32 | disposition home or self-care (01) ==
LOC: HO.LAB 14:31
PROVIDERS: PCP Internal Medicine; Visit Provider Internal Medicine
DX: K57.92 Diverticulitis of intestine, part unspecified, without perforation or abscess without bleeding (principal); D64.9 Anemia, unspecified; E03.9 Hypothyroidism, unspecified
CPT/HCPCS: 36415; 80048; 84443; 85025

== ENCOUNTER 2023-12-16 09:17 | Outpatient (REF) | payer MEDICARE, OTHER, SELFPAY ==
--- NOTE | ~2023-12-16 | US_ITS ---
EXAMINATION: US ABDOMEN COMPLETE CLINICAL INFORMATION: Unspecified abdominal pain COMPARISON: None available. TECHNIQUE: Real-time imaging of the abdominal viscera. FINDINGS: PANCREAS: Normal. ABDOMINAL AORTA: The proximal, mid, and distal segments are normal in caliber. INFERIOR VENA CAVA: Visualized portions are normal. LIVER: Normal. The liver is normal in size. The liver contour is normal. Parenchymal echogenicity is normal. No focal hepatic lesion. There is no intrahepatic biliary duct dilatation seen. GALLBLADDER: Normal. The gallbladder is physiologically distended without evidence of stones, sludge, polyps, wall thickening or pericholecystic fluid. Sonographic Caal sign is negative. COMMON BILE DUCT: Normal in caliber measuring 0.4 cm in diameter. RIGHT KIDNEY: Normal. No hydronephrosis. No renal calculi or focal parenchymal lesions. The kidney measures 10.6 cm in maximum dimension. LEFT KIDNEY: Normal. No hydronephrosis. No renal calculi or focal parenchymal lesions. The kidney measures 9.5 cm in maximum dimension. SPLEEN: Normal. The spleen measures 10.9 cm in maximum dimension. FREE FLUID: None. ADDITIONAL FINDINGS: Area of pain in the left lower quadrant demonstrates no focal mass or collection. US/US abdomen complete IMPRESSION: 1. Unremarkable abdominal ultrasound. 2. Area of pain in the left lower quadrant demonstrates no focal mass or collection.
== END 2023-12-16 09:18 | disposition home or self-care (01) ==
LOC: HO.US 09:17
PROVIDERS: PCP Internal Medicine; Visit Provider Internal Medicine
DX: R10.9 Unspecified abdominal pain (principal)
CPT/HCPCS: 76700

== ENCOUNTER 2024-04-04 08:44 | Outpatient (REF) | payer MEDICARE, OTHER, SELFPAY ==
[2024-04-04 11:12] LABS: Anion Gap 9 (12-20); Blood Urea Nitrogen 13 mg/dL (9-16); Calcium 9.3 mg/dL (8.4-10.2); Carbon Dioxide 27 mmol/L (22-29); Chloride 110 mmol/L (96-108); Estimated Glomerular Filt Rate > 60; Glucose Random 88 mg/dL (60-115); Potassium 4.2 mmol/L (3.3-5.1); Sodium 142 mmol/L (135-145)
== END 2024-04-04 08:45 | disposition home or self-care (01) ==
LOC: HO.WFDLDS 08:44
PROVIDERS: Visit Provider Internal Medicine
DX: R10.9 Unspecified abdominal pain (principal)
CPT/HCPCS: 36415; 80048

== ENCOUNTER 2024-04-08 06:15 | Outpatient (REF) | payer MEDICARE, OTHER, SELFPAY ==
--- NOTE | ~2024-04-08 | CT_ITS ---
EXAMINATION: CT ABDOMEN AND PELVIS WITH CONTRAST CLINICAL INFORMATION: Abdominal pain COMPARISON: Abdominal ultrasound 12/16/2023 TECHNIQUE: Multidetector volumetric images were obtained from the superior aspect of the liver through the pubic symphysis following administration 85 mL of Omnipaque 350 intravenous contrast. Sagittal and coronal reformatted images were obtained on the technologist's workstation. Oral contrast: No This CT examination was performed using dose optimization techniques as appropriate, variously including the following: *Automated exposure control *Adjustment of mA and/or kV according to patient size (this includes techniques or standardized protocols for targeted exams where dose is matched to indication/reason for exam; i.e. extremities or head) *Use of iterative reconstruction technique DLP: 284 mGy-cm FINDINGS: LUNG BASES: The visualized lung bases are unremarkable. LIVER, GALLBLADDER, AND BILIARY TREE: The liver is normal in size, shape, and attenuation. There is a 5 mm water density hypoattenuating lesion consistent with a benign cyst. No suspicious solid focal hepatic lesion or biliary ductal dilatation is present. The gallbladder is unremarkable with no evidence of radiopaque gallstones, gallbladder wall thickening, or obvious pericholecystic inflammatory changes. PANCREAS: Unremarkable. SPLEEN: Unremarkable. ADRENAL GLANDS: Unremarkable. KIDNEYS AND URETERS: The kidneys are normal in size, shape, and attenuation. No hydronephrosis, hydroureter, or calculi seen. No perinephric stranding. BLADDER: Unremarkable. GASTROINTESTINAL TRACT: The small and large bowel are unremarkable aside from colonic diverticula without diverticulitis. The appendix is unremarkable. ABDOMINAL WALL: No significant hernia is appreciated. LYMPH NODES: No retroperitoneal lymphadenopathy. VASCULAR: Unremarkable. PELVIC VISCERA: The uterus is not seen. An abnormal adnexal mass is not detected. No free intraperitoneal fluid is present. OSSEOUS STRUCTURES: There is a scoliosis convex to the left with minimal degenerative changes. No bony destructive lesions. CT/CT abdomen pelvis w IV con IMPRESSION: A cause for the patient's abdominal pain has not been found. Incidental findings as described above. Fleischner guidelines were followed.
[2024-04-08] MEDS: Barium Sulfate Oral (Berry) 450 ML ORAL.SUSP 900 ML PO (08:58)
[2024-04-08] MEDS: iohexoL 350 MG/ML 100 ML INFUS..BTL 85 ML IV (08:59)
== END 2024-04-08 06:16 | disposition home or self-care (01) ==
LOC: HO.CT 06:15
PROVIDERS: PCP Internal Medicine; Visit Provider Internal Medicine
DX: R10.9 Unspecified abdominal pain (principal)
CPT/HCPCS: 74177; Q9967

== ENCOUNTER 2024-08-03 08:52 | Day surgery (SDC) | payer MEDICARE, OTHER, SELFPAY ==
[2024-08-01 14:17] VITALS: BMI 21.6
--- NOTE | 2024-08-02 08:29 | HO.ANESPROP2 ---
Documented by User: Lexii Poe NP 08/02/24 08:30 HPI - Anesthesia Eval Consult details Narrative: 68yo F for Colonoscopy PMFSH Active Problems Active Problems: All Active Problems Diverticulitis (Acute) Encounter for initial annual wellness visit (AWV) in Medicare patient (Acute) Hypothyroidism (Acute) Encounter for subsequent annual wellness visit (AWV) in Medicare patient (Acute) Intermittent palpitations (Acute) Lipoma (Acute) De Quervain's disease (radial styloid tenosynovitis) (Acute) Adult general medical exam (Acute) Screening for colon cancer (Acute) Screening for hyperlipidemia (Acute) Screening for diabetes mellitus (Acute) Depression (Acute) Wrist pain (Acute) Lump of skin (Acute) Post-menopausal (Acute) Past Medical History Medical History Diverticulitis Hypothyroid Anxiety and depression Lump of skin Post-menopausal Family History Family History Father No problems noted. Mother Substance use disorder Surgical History Surgical History History of excision of mass History of colonoscopy History of thyroidectomy History of partial hysterectomy Social History Social History (Updated 08/01/24 @ 14:19 by Sasha Chávez RN) Household Members: Spouse Housing: House Are you a primary health care manager to a significant other at home: No Alcohol intake: never Patient Tobacco Use Status: Never used Tobacco e-Cigarette/Vaping Use: Never Used Second Hand Smoke Exposure: No Use of substances other than those prescribed or required for medical reasons: No Have you been hit, kicked, punched, or otherwise hurt by someone within the past year? If so, by whom?: No Are you DNR?: No Advance Directives: No Advance Directives Information Provided: Yes Recently lost weight without trying: No Nutrition Risks: No Nutritional Risk service: No Current occupational status: retired Cognitive needs: No Hearing needs: No Vision needs: No Meds Allergies Allergy/AdvReac Type Severity Reaction Status Date / Time erythromycin base Allergy Intermediate Nausea Verified 08/01/24 14:17 oxycodone [From Percocet] Allergy Intermediate Palpitation Verified 08/01/24 14:17 s Exam Height,Weight and Vital Signs: Height 5 ft 5 in Weight 58.967 kg Assessment and Plan Assessment Anesthesia Assessment: Chart Reviewed Documented by User: Imelda Pretty MD 08/03/24 09:56 [facility] Past Medical History Medical History Diverticulitis Hypothyroid Anxiety and depression Lump of skin Post-menopausal Family History Family History Father No problems noted. Mother Substance use disorder Family history of problems with anesthesia: No Surgical History Surgical History History of excision of mass History of colonoscopy History of thyroidectomy History of partial hysterectomy History of Problems with Anesthesia: No Social History Social History (Updated 08/01/24 @ 14:19 by Sasha Chávez RN) Household Members: Spouse Housing: House Are you a primary health care manager to a significant other at home: No Alcohol intake: never Patient Tobacco Use Status: Never used Tobacco e-Cigarette/Vaping Use: Never Used Second Hand Smoke Exposure: No Use of substances other than those prescribed or required for medical reasons: No Have you been hit, kicked, punched, or otherwise hurt by someone within the past year? If so, by whom?: No Are you DNR?: No Advance Directives: No Advance Directives Information Provided: Yes Recently lost weight without trying: No Nutrition Risks: No Nutritional Risk service: No Current occupational status: retired Cognitive needs: No Hearing needs: No Vision needs: No Meds Allergies Allergy/AdvReac Type Severity Reaction Status Date / Time erythromycin base Allergy Intermediate Nausea Verified 08/01/24 14:17 oxycodone [From Percocet] Allergy Intermediate Palpitation Verified 08/01/24 14:17 s Exam Airway Mallampati Class: II TM Dist: >3cm Neck ROM: Full Heart: rrr Lungs: cta Assessment and Plan Assessment Anesthesia Assessment: Anesthesia Plan Discussed Final Anesthetic Review Family History of Problems with Anesthesia: No History of Problems with Anesthesia: No NPO: Yes ASA Class: II Final Preanesthetic Review: No Changes in Pt Med Stat, Meds/Allgs Chart Reviewed and Consent Obtained/Reviewed Patient Risk: Low Procedure Risk: Low Anesthetic Plan Anesthetic Plan: MAC: Disposition: Standard PACU
[2024-08-03 09:03] VITALS: BMI 20.7
[2024-08-03 09:53] VITALS: BP 147/80; PULSE 82; RESP 16; TEMP 36.8; O2SAT 98
[2024-08-03] MEDS: Lactated Ringers 1,000 ML 100 ML IVCONT (10:03)
[2024-08-03 11:23] VITALS: BP 96/44; PULSE 64; RESP 16; TEMP 36.1; O2SAT 97
--- NOTE | 2024-08-03 11:26 | PM.OP ---
Brief Operative Note Date of Service: 08/03/24 Pre-op diagnosis: Rectal bleeding Post-op diagnosis: other (Colon polyp) Procedure: Colonoscopy to the cecum and TI with bx/removal of polyp Surgeon: Willie Amezcua MD Anesthesia: MAC Was an Director Of Event Management used for this Procedure?: No Estimated blood loss (mL): 2.0 Pathology: other (A. Cecal polyp) Condition: stable Disposition: PACU
[2024-08-03 11:38] VITALS: BP 118/60; PULSE 68; RESP 16; O2SAT 98
[2024-08-03 11:50] VITALS: BP 127/64; PULSE 58; RESP 16; TEMP 36.2; O2SAT 99
--- NOTE | 2024-08-03 12:05 | OP_ITS ---
DATE OF SERVICE: 08/03/2024 SURGEON: Willie Amezcua MD INDICATIONS: The patient presents for evaluation of intermittent rectal bleeding. Full consent has been obtained from her for this, including risks of bleeding and perforation. PREOPERATIVE DIAGNOSIS: POSTOPERATIVE DIAGNOSIS: PROCEDURE PERFORMED: Colonoscopy to the cecum and terminal ileum with biopsy and removal of polyp. ESTIMATED BLOOD LOSS: COMPLICATIONS: ANESTHESIA: Monitored anesthesia care. ASSISTANTS: SPECIMENS: PREOPERATIVE DIAGNOSES: Small colon polyp, diverticulosis, and internal hemorrhoids. DESCRIPTION OF PROCEDURE: The patient was placed in the left lateral decubitus position. The digital rectal exam revealed no abnormalities. The Olympus video pediatric colonoscope was entered into the rectum and advanced to the cecum. Advancement past the sigmoid colon was somewhat difficult due to diverticular disease and adhesions. However, once in the cecum, I did identify normal-appearing cecal pouch other than a 3 mm probable hyperplastic cecal polyp, which was biopsied and completely removed with a cold biopsy forceps. The remainder of the cecum including the appendiceal orifice appeared normal. The terminal ileum was cannulated and appeared normal. The scope was withdrawn back in the colon. The ileocecal valve appeared normal. The scope was slowly withdrawn assessing all mucosal surfaces carefully. Preparation was excellent. I did not visualize any sign of other polyps, colitis, nor angiodysplasia. There were occasional diverticula noted in the transverse colon and a mild to moderate amount in the sigmoid colon. In the rectum, the scope was retroflexed visualizing some internal hemorrhoids, but no other pathology. The rectal mucosa appeared normal. The scope was straightened and withdrawn from the patient. She tolerated the procedure well and was returned to the recovery area in stable condition. IMPRESSION: 1. Small colon polyp, status post biopsy and removal. 2. Diverticulosis. 3. Internal hemorrhoids. PLAN: The results of the biopsy will be checked. Given these minimal findings and her age and a reportedly negative colonoscopy 5 years ago, as well as no family history of colorectal cancer, I advised her that I do not think she would need any further screening colonoscopies. She will otherwise see me on a p.r.n. basis. MD MATEUS Segundo/HALLIE / [phone] [id number]
== END 2024-08-03 12:40 | disposition home or self-care (01) ==
PROVIDERS: PCP Internal Medicine; Visit Provider Internal Medicine
PROC: 0DJD8ZZ Inspection of Lower Intestinal Tract, Via Natural or Artificial Opening Endoscopic (ICD-10-PCS; CPT 45378; principal; 2024-08-03 10:20)
DX: K63.5 Polyp of colon (principal); K57.30 Diverticulosis of large intestine without perforation or abscess without bleeding; K64.8 Other hemorrhoids; E03.9 Hypothyroidism, unspecified; D17.9 Benign lipomatous neoplasm, unspecified
CPT/HCPCS: 45380; 88305

== ENCOUNTER 2025-07-18 08:28 | Outpatient (AMB) | payer MEDICARE, OTHER, SELFPAY ==
--- OUTSIDE RECORDS SUMMARY | 2024-08-03 06:20 | XMS_ITS ---
Author Organization [facility] Address [address] [place] [address] Care Team Providers Care Thread Clipper Name Role Phone Armando Srinivasan MD Primary Care Provider Willie Simpson [phone] REASON FOR VISIT diverticulitis, rectal bleed Problems Problem Type SNOMED Code ICD Code Onset Dates Problem Status W/U Status Risk Notes Problem Diverticular disease of colon (694849579) Diverticulosis of large intestine without perforation or abscess without bleeding (K57.30) Active confirmed Encounters Encounter Location Date Provider Diagnosis [facility] [place] [address] [place] [id number] 08/03/2024 Willie Amezcua Colon polyps K63.5 ; [...] NIKHIL BEATTY MDOB:[birth year] (69 yo F)Acc No.[id number]:08/03/2024 COLON WITH MAC Patient: NIKHIL MURPHY Provider: Patrick Amezcua MD :1955 A ge:68 Y S ex:Female Date:08/03/2024 Address:[address] [place], [place] [id number] Pcp:Armando Srinivasan MD Subjective: * Chief Complaints: * 1 . Diverticulitis, rectal bleed. * Medical History: Objective: * Vitals: Assessment: * Assessment: 1. C olon polyps - K63.5 (Primary) 2 . R ectal bleed - K62.5 ?3. D iverticulosis of large intestine without perforation or abscess without bleeding - K57.30 4 . O ther hemorrhoids - K64.8 Plan: * Treatment: * Procedure Codes: 4 5380 COLONOSCOPY AND BIOPSY, 0529F INTRVL 3+YRS PTS CLNSCP DOCD, 0528F RCMND FLW-UP 10 YRS DOCD * * The named appointment provid er may or may not be the originator of this progress note, and it is not deemed complete until electronically signed by the appointment provider. Sign off status: Pending * Provider: Patrick Amezcua MD Date: 10/03/2023 Generated for Timmy hawk/Toyin/Josetteitting on: 08:44 AM EDT
--- NOTE | 2025-07-18 08:33 | MHC.PC.OV ---
Vital Signs 07/18/25 08:35 Height 5 ft 5 in Weight 133 lb 8 oz BMI 22.2 BP 100/62 Blood Pressure Location Lt brachial Position Sitting Pulse 61 Pulse Source Pulse Oximeter Temp 96.8 F Temp Source Temporal Artery Scan Pulse Oximetry (%) 98 Oxygen Delivery Method Room Air Intake Visit Reasons: ASUNCION Dr Srinivasan Intake Note: Patient is here today for ASUNCION from Dr Srinivasan Skin Care Instructor Required: No Shop Director: Not Required per policy Accompanied by: Self / Same As Patient Allergies erythromycin base Allergy (Intermediate, Verified 07/18/25 08:34) Nausea oxycodone (From Percocet) Allergy (Intermediate, Verified 07/18/25 08:34) Palpitations Tobacco use date assessed: 07/18/25 Fall risk assessment: No Falls in past year Last assessed Fall Risk: 07/18/25 Dental Screening Dental Screen Date: 07/18/25 Did you have a dental visit in the last 12 months?: Yes Did you have a dental problem in the last 6 months where you did not have access to dental care?: No Was dental information given to patient?: Patient has dentist [facility] Medical History Diverticulitis Hypothyroid Anxiety and depression Lump of skin Post-menopausal Surgical History History of excision of mass History of colonoscopy History of thyroidectomy History of partial hysterectomy Family History Father No problems noted. Mother Substance use disorder Social History Household Members: Spouse Housing: House Are you a primary home day care provider to a significant other at home: No Alcohol intake: never Patient Tobacco Use Status: Never used Tobacco e-Cigarette/Vaping Use: Never Used Second Hand Smoke Exposure: No service: No Current occupational status: retired Cognitive needs: No Hearing needs: No Vision needs: No Questionnaire PHQ-9 Over the last 2 weeks, how often have you been bothered by any of the following problems? 1. Little interest or pleasure in doing things: not at all 2. Feeling down, depressed, or hopeless: not at all 3. Trouble falling or staying asleep, or sleeping too much: not at all 4. Feeling tired or having little energy: not at all 5. Poor appetite or overeating: not at all 6. Feeling bad about yourself - or that you are a failure or have let yourself or your family down: not at all 7. Trouble concentrating on things, such as reading the newspaper or watching television: not at all 8. Moving or speaking so slowly that other people could have noticed. Or the opposite - being so fidgety or restless that you have been moving around a lot more than usual: not at all 9. Thoughts that you would be better off or of hurting yourself in some way: not at all Total score: 0 Depression Screening Interpretation: Negative Depression Screening Done: Yes Source: Developed by Drs. Willie Brown, Kyra Tran, Kobi Grande and colleagues, with an educational seb from [employer]. Thrive Questionnaire Date Thrive assessed: 07/18/25 I am a: Patient What is your living situation today?: I have a steady place to live Within the past 12 months, did the food you bought not last and you didn't have the money to get more?: Never true Within the past 12 months, did you worry whether your food would run out before you got money to buy more?: Never true Do you have trouble paying for medicines?: No Do you have trouble getting transportation to medical appointments?: No Do you have trouble paying your heating and electricity bill?: No Do you have trouble taking care of your child, family member or friend?: No Do you have trouble with day-to-day activities such as bathing, preparing meals, shopping, managing finances, etc.?: No Are you currently unemployed and looking for a job?: Yes Are you interested in more education?: No Please select the resources that you would like help with: None Currently or been in a relationship where the following occur: No concerns reported THRIVE Score: 0 AUDIT C Alcohol Use Questionnaire (AUDIT-C) 1. How often do you have a drink containing alcohol?: Never Total Score: 0 BRI-7 AMB Questionnaire BRI-7 Date BRI - 7 assessed: 07/18/25 Feeling nervous, anxious, or on edge: 0 = Not at all Not being able to stop or control worryin = Not at all Worrying too much about different things: 0 = Not at all Trouble relaxin = Not at all Being so restless that it is hard to sit still: 0 = Not at all Becoming easily annoyed or irritable: 0 = Not at all Feeling afraid as if something awful might happen: 0 = Not at all Total BRI-7 score (0-4 normal; 5-9 mild; 10-14 moderate; 15-21 severe): 0 Source: Developed by Drs. Willie Brown, Kyra Tran, Kobi Grande and colleagues, with an educational seb from [employer]. Physical exam (Primary Care) Tobacco/Smoking Status: Tobacco use Status Tobacco use date assessed 12/14/23 12/14/23 14:09 Patient Tobacco Use Status Never used Tobacco 08/03/24 11:25 e-Cigarette/Vaping Use Never Used 12/14/23 14:09 Depression Screening Interpretation: Negative Thrive Assessment: Date of Thrive Assessment Date Thrive assessed 12/14/23 12/14/23 14:09 Currently or been in a relationship where the following occur: No concerns reported Coding
[2025-07-18 08:35] VITALS: BP 100/62; PULSE 61; RESP 16; TEMP 36; O2SAT 98; BMI 22.2
--- NOTE | 2025-07-18 08:38 | A.OFFPC_ITS ---
Vital Signs 07/18/25 08:35 Height 5 ft 5 in Weight 133 lb 8 oz BMI 22.2 BP 100/62 Blood Pressure Location Lt brachial Position Sitting Respiration 16 Pulse 61 Pulse Source Pulse Oximeter Temp 96.8 F Temp Source Temporal Artery Scan Pulse Oximetry (%) 98 Oxygen Delivery Method Room Air Intake Visit Reasons: ASUNCION Dr Srinivasan Allergies erythromycin base Allergy (Intermediate, Verified 07/18/25 08:42) Nausea oxycodone (From Percocet) Allergy (Intermediate, Verified 07/18/25 08:42) Palpitations Medication List - Last Reconciled 07/18/25 by BETO Connolly citalopram 20 mg PO DAILY Synthroid (levothyroxine) 100 mcg PO I tab 6 days a week and 1.5 tabs 1 day a week; no subs 90 days NS Tobacco use date assessed: 12/14/23 Dental Screening Dental Screen Date: 12/14/[address] Srinivasan HPI Details The patient is a 69-year-old female presenting to transition care from Dr. Srinivasan, who retired, as long as for a routine wellness visit and management of chronic conditions. The patient has a history of hypothyroidism following a thyroidectomy, for which she takes levothyroxine 100 mcg daily, with an additional half tablet once a week. She has not seen her pharmacy intake coordinator in over three years and requires a referral for a follow-up. She reports a history of diverticulitis and has had a lipoma removed previously, which has recurred along with another small lipoma. The lipomas are not current ly causing any discomfort, and she is considering removal if they become bothersome. The patient has a past diagnosis of De Quervain's disease, which has been resolved. She experiences depression, managed with citalopram 10 mg daily, which she reports is effective. Her cholesterol levels were last checked in 2022, showing elevated total cholesterol and LDL levels, with HDL levels being satisfactory. She acknowledges the need to monitor her cholesterol levels and dietary habits. The patient reports experiencing heart palpitations for many years, which were previously evaluated and attributed to anxiety or possibly related to her hypothyroidism. She denies any recent changes in bowel habits, chest pain, or other concerning symptoms. Preventative care measures discussed include a dermatology referral for a skin check due to a changing spot and a bone density test, which she has not yet completed. Dr. obrien [phone] for thyroid referral, in [place] She is looking for dermatology referral The patient is all set with mammogram; she has dental cleaning in a month Reports that she has a hysterectomy in the past. Her last colonoscopy was 6 months ago. She is due to bone density exam. [facility] Medical History Diverticulitis Hypothyroid Anxiety and depression Lump of skin Post-menopausal Surgical History History of excision of mass History of colonoscopy History of thyroidectomy History of partial hysterectomy Family History Father No problems noted. Mother Substance use disorder Social History Household Members: Spouse Housing: House Are you a primary primary care pediatrician to a significant other at home: No Alcohol intake: never Patient Tobacco Use Status: Never used Tobacco e-Cigarette/Vaping Use: Never Used Second Hand Smoke Exposure: No service: No Current occupational status: retired Cognitive needs: No Hearing needs: No Vision needs: No Questionnaire PHQ-9 Over the last 2 weeks, how often have you been bothered by any of the following problems? 1. Little interest or pleasure in doing things: not at all 2. Feeling down, depressed, or hopeless: not at all 3. Trouble falling or staying asleep, or sleeping too much: not at all 4. Feeling tired or having little energy: not at all 5. Poor appetite or overeating: not at all 6. Feeling bad about yourself - or that you are a failure or have let yourself or your family down: not at all 7. Trouble concentrating on things, such as reading the newspaper or watching television: not at all 8. Moving or speaking so slowly that other people could have noticed. Or the opposite - being so fidgety or restless that you have been moving around a lot more than usual: not at all 9. Thoughts that you would be better off or of hurting yourself in some way: not at all Total score: 0 Depression Screening Interpretation: Negative Depression Screening Done: Yes 10197 - PHQ-9 Billing: Yes Source: Developed by Drs. Willie Brown, Kobi Hernandez and colleagues, with an educational seb from [employer]. Thrive Questionnaire Date Thrive assessed: 12/14/23 I am a: Patient What is your living situation today?: I have a steady place to live Within the past 12 months, did the food you bought not last and you didn't have the money to get more?: Never true Within the past 12 months, did you worry whether your food would run out before you got money to buy more?: Never true Do you have trouble paying for medicines?: No Do you have trouble getting transportation to medical appointments?: No Do you have trouble paying your heating and electricity bill?: No Do you have trouble taking care of your child, family member or friend?: No Do you have trouble with day-to-day activities such as bathing, preparing meals, shopping, managing finances, etc.?: No Are you currently unemployed and looking for a job?: Yes Are you interested in more education?: No Please select the resources that you would like help with: None Currently or been in a relationship where the following occur: No concerns reported THRIVE Score: 0 AUDIT C Alcohol Use Questionnaire (AUDIT-C) 1. How often do you have a drink containing alcohol?: Never Total Score: 0 BRI-7 AMB Questionnaire BRI-7 Date BRI - 7 assessed: 12/14/23 Feeling nervous, anxious, or on edge: 0 = Not at all Not being able to stop or control worryin = Not at all Worrying too much about different things: 0 = Not at all Trouble relaxin = Not at all Being so restless that it is hard to sit still: 0 = Not at all Becoming easily annoyed or irritable: 0 = Not at all Feeling afraid as if something awful might happen: 0 = Not at all Total BRI-7 score (0-4 normal; 5-9 mild; 10-14 moderate; 15-21 severe): 0 Source: Developed by Kyra Richardson Kurt Kroenke and colleagues, with an educational seb from [employer]. BRI-7 Assessment Billing BRI-7 Assessment Tool: BRI-7 Assessment 55122 Review of Systems Const Denies headache(s) Eyes Denies loss of vision ENT Denies vertigo, Denies dizziness, Denies headache(s) and Denies sore throat Card Denies chest pain, Denies leg edema, Denies lightheadedness and Reports other (hx of palpation) Resp Denies cough, Denies hemoptysis and Denies wheezing GI Denies abdominal pain, Denies melena, Denies constipation, Denies diarrhea and Denies vomiting Denies urinary frequency, Denies dysuria and Denies urinary urgency Musc Reports arthralgias (left knee medial aspect discomfort), Denies joint swelling, Denies numbness and Denies tingling Skin/Breast Reports other (lipomas and angiomas) Neuro Denies Abnormal speech present, Denies behavioral changes, Denies vertigo, Denies dizziness, Denies headache(s), Denies loss of vision, Denies memory loss, Denies numbness and Denies tingling Psych Denies anxiety, Denies behavioral changes, Reports depression (well controlled on treatment), Denies memory loss and Denies panic attacks Joseph/Lymph Denies easy bleeding and Denies easy bruising Aller/Immun Denies wheezing Physical exam (Primary Care) Vital Signs: Last Vital Signs Temp 96.8 F 07/18/25 08:35 Pulse 61 07/18/25 08:35 Resp 16 07/18/25 08:35 BP 100/62 07/18/25 08:35 Pulse Ox 98 07/18/25 08:35 Oxygen Delivery Method Room Air 07/18/25 08:35 BMI result Body Mass Index 22.2 Tobacco/Smoking Status: Tobacco use Status Tobacco use date assessed 12/14/23 07/18/25 08:40 Patient Tobacco Use Status Never used Tobacco 07/18/25 08:40 e-Cigarette/Vaping Use Never Used 07/18/25 08:40 PHQ-9: PHQ-9 Score PHQ-9: Total score 0 07/18/25 11:26 Depression Screening Interpretation: Negative Thrive Assessment: Date of Thrive Assessment Date Thrive assessed 12/14/23 07/18/25 08:40 Currently or been in a relationship where the following occur: No concerns reported Const General: healthy appearing, no acute distress, alert and awake Nutritional Appearance: well nourished Orientation/consciousness: oriented to person, oriented to place and oriented to time HENMT Ears: TM's normal bilaterally General nose exam: Normal nasal mucous membranes and turbinates present Eyes Conjunctivae: conjunctivae normal Sclerae: sclerae normal Pupils: Equal, round and reactive pupils present Neck Neck: Yes no lymphadenopathy and Yes no JVD Thyroid: Thyroid normal Carotids: no bruits Resp Effort & Inspection: normal respiratory effort and not tachypneic Auscultation: no crackles, no rales, no rhonchi and no wheezes Cardio Rate: regular rate Rhythm: regular rhythm Heart sounds: no murmurs and normal S1 and S2 GI Palpation (GI): Soft to palpation, nontender, no hepatomegaly and no splenomegaly Auscultation: normal bowel sounds General: Yes no CVA tenderness Back/Spine/Pelvis Back: no CVA tenderness Skin General skin exam: dry skin and other (left shoulder lipoma and left back lipoma) Lesions: lesion noted (left neck angioma) Neuro General: oriented to person, oriented to place and oriented to time Cranial nerves: Yes Equal, round and reactive pupils present Speech: No Abnormal speech present Gait exam (Neuro): Normal gait present Motor exam (neuro): no tremor noted Extrem Right upper extremity: full ROM Left upper extremity: full ROM Right lower extremity: full ROM; no edema Left lower extremity: full ROM and knee Details: no tenderness and no swelling; no edema Psych Mental Status: mental status grossly normal Speech and movement: Normal speech and movement present Affect: normal affect Attitude: cooperative Thought process: Normal thought process present Coding Level of Care Code Est Pt Level 4 (30861) Diagnoses Hypothyroidism, unspecified type E03.9 Hypothyroidism type: unspecified Hyperlipidemia, unspecified hyperlipidemia type E78.5 Hyperlipidemia type: unspecified Lipoma, unspecified site D17.9 Lipoma location: unspecified Depression, unspecified depression type F32.A Depression Type: unspecified Heart palpitations R00.2 Hemangioma, unspecified site D18.00 Hemangioma site: unspecified site Post-menopausal Z78.0 Additional Codes BRI-7 Assessment Billing - BRI-7 Assessment Tool: BRI-7 Assessment 02552 ([id number]) PHQ-9 - 07464 - PHQ-9 Billing: Yes ([id number]) Time Spent (min) 41 Assessment & Plan Assessment & Plan (1) Hypothyroidism: Code(s): E03.9 - Hypothyroidism, unspecified Category: Medical Qualifiers: Hypothyroidism type: unspecified Qualified Code(s): E03.9 - Hypo thyroidism, unspecified (2) HLD (hyperlipidemia): Code(s): E78.5 - Hyperlipidemia, unspecified Category: Medical Qualifiers: Hyperlipidemia type: unspecified Qualified Code(s): E78.5 - Hyperlipidemia, unspecified (3) Lipoma: Code(s): D17.9 - Benign lipomatous neoplasm, unspecified Category: Medical Qualifiers: Lipoma location: unspecified Qualified Code(s): D17.9 - Benign lipomatous neoplasm, unspecified (4) Depression: Code(s): F32.9 - Major depressive disorder, single episode, unspecified Category: Medical Qualifiers: Depression Type: unspecified Qualified Code(s): F32.A - Depression, unspecified (5) Heart palpitations: Code(s): R00.2 - Palpitations Category: Medical (6) Angioma: Code(s): D18.00 - Hemangioma unspecified site Category: Medical Qualifiers: Hemangioma site: unspecified site Qualified Code(s): D18.00 - Hemangioma unspecified site (7) Post-menopausal: Code(s): Z78.0 - Asymptomatic menopausal state Category: Medical Plan Plan Patient was informed and verbally consented to the use of an ambient scribe for clinic note documentation during this visit. 1. Hypothyroidism The patient will be referred to an pharmacy intake coordinator for a follow-up on her hypothyroidism, as she has not been seen in over three years. Her current medication regimen of levothyroxine 100 mcg daily, with an additional half tablet once a week, will be continued as it is effective. 2. Hyperlipidemia The patient is advised to monitor her cholesterol levels and dietary habits, given the elevated total cholesterol and LDL levels noted in 2022. Further lipid panel testing will be conducted to assess current levels and guide management. 3. Lipoma The patient has a recurrent lipoma and another small lipoma, which are not currently causing discomfort. She is considering surgical removal if they become bothersome, and a referral to general surgery may be considered if needed. 4. Depression The patient's depression is currently managed with citalopram 10 mg daily, which she reports as effective. No changes to her medication regimen are planned at this time. 5. Heart Palpitations The patient reports long-standing heart palpitations, previously evaluated and attributed to anxiety or hypothyroidism. No new interventions are planned unless symptoms change or worsen. 6. Preventative Care The patient will be referred to dermatology for a skin check due to a changing spot, and a bone density test is recommended as she has not completed one yet. She will also be referred to an pharmacy intake coordinator for a thyroid check-up. Orders: Orders UA CC w/rflx Micro + Cult Today D17.9 - Benign lipomatous neoplasm, unspecified, E03.9 - Hypothyroidism, unspecified, F32.9 - Major depressive disorder, single episode, unspecified, M25.539 - Pain in unspecified wrist, R00.2 - Palpitations, Z13.1 - Encounter for screening for diabetes mellitus, Z13.220 - Encounter for screening for lipoid disorders Free T4 (Free Thyroxine) Today D17.9 - Benign lipomatous neoplasm, unspecified, E03.9 - Hypothyroidism, unspecified, F32.9 - Major depressive disorder, single episode, unspecified, M25.539 - Pain in unspecified wrist, R00.2 - Palpitations, Z13.1 - Encounter for screening for diabetes mellitus, Z13.220 - Encounter for screening for lipoid disorders Vitamin D 25-OH Total Today D17.9 - Benign lipomatous neoplasm, unspecified, E03.9 - Hypothyroidism, unspecified, F32.9 - Major depressive disorder, single episode, unspecified, M25.539 - Pain in unspecified wrist, R00.2 - Palpitations, Z13.1 - Encounter for screening for diabetes mellitus, Z13.220 - Encounter for screening for lipoid disorders Complete Blood Count Auto Diff Today D17.9 - Benign lipomatous neoplasm, unspecified, E03.9 - Hypothyroidism, unspecified, F32.9 - Major depressive disorder, single episode, unspecified, M25.539 - Pain in unspecified wrist, R00.2 - Palpitations, Z13.1 - Encounter for screening for diabetes mellitus, Z13.220 - Encounter for screening for lipoid disorders Comprehensive Julian. Panel Fast Today D17.9 - Benign lipomatous neoplasm, unspecified, E03.9 - Hypothyroidism, unspecified, F32.9 - Major depressive disorder, single episode, unspecified, M25.539 - Pain in unspecified wrist, R00.2 - Palpitations, Z13.1 - Encounter for screening for diabetes mellitus, Z13.220 - Encounter for screening for lipoid disorders Lipid Panel Today D17.9 - Benign lipomatous neoplasm, unspecified, E03.9 - Hypothyroidism, unspecified, F32.9 - Major depressive disorder, single episode, unspecified, M25.539 - Pain in unspecified wrist, R00.2 - Palpitations, Z13.1 - Encounter for screening for diabetes mellitus, Z13.220 - Encounter for screening for lipoid disorders XR DEXA axial skeleton Today Z78.0 - Asymptomatic menopausal state Referrals Dermatology Referral D18.00 - Hemangioma unspecified site Endocrinology Referral E03.9 - Hypothyroidism, unspecified
--- OUTSIDE RECORDS SUMMARY | 2025-07-18 08:44 | XMS_ITS | Patient Health Record ---
Author Organization [facility] Address [address] [place] [address] Care Team Providers Care Industrial Truck Mechanic Name Role Phone Armando Srinivasan MD Primary Care Provider Willie Simpson [phone] Allergies Allergen (clinical drug ingredient) Drug/Non Drug Allergy documented on EMR Reaction Allergy Type Onset Date Status erythromycin Erythromycin Unknown Drug Allergy A ctive acetaminophen / oxycodone Percocet Unknown Drug Allergy Active Results Component Value Reference Range Notes Pathology (Not yet reviewed by provider) Interpretation: Performing Lab:[facility], [address] [place] [id number] Notes/Report: Reason For Referral No Information Medications Medication SIG (Take, Route, Frequency, Duration) Notes Start Date End Date Status Citalopram Hydrobromide 20 MG Oral; Duration: 90 Active Synthroid 100 MCG Oral; Duration: 90 Active Social History Tobacco Use: Social History Observation Description Date Details (start date - stop date) Never Smoker NA - NA Tobacco Use/Smoking Question Answer Notes Patient is a nonsmoker Alcohol Screen Question Answer Notes Did you have a drink containing alcohol in the p ast year? No Points 0 Interpretation Negative Problems Problem Type SNOMED Code ICD Code Onset Dates Problem Status W/U Status Risk Notes Problem Diverticular disease of colon ([id number]) Diverticulosis of large intestine without perforation or abscess without bleeding (K57.30) Active confirmed Problem Diverticulitis (79830745) Diverticulitis (K57.92) Active confirmed Problem Hemorrhage of rectum and anus (767901720) Rectal bleed (K62.5) Active confirmed Encounters Encounter Location Date Provider Diagnosis [facility] [place] [facility] [address] [place], [place] [id number] 08/03/2024 Willie Amezcua Colon polyps K63.5 ; [...] hemorrhoids (ICD-10 - K64.8) Plan Of Treatment Pending Test Test Name Order Date Pathology 08/03/2024 Future Test Test Name Order Date COLONOSCOPY 04/19/2024 Insurance Providers Payer Name Payer Address Payer Phone Subscriber Number Group Number Insured Name Patient Relationship to Insured Coverage Start Date Coverage End Date MEDICARE OF [place] [address] [place] [address] [id number] NIKHIL BEATTY Self - patient is the insured FOR LIFE [address] [place] [address] [id number] NIKHIL BEATTY Self - patient is the insured Medical (General) History Medical History History ICD Code Hypothyroidism Neg Cologuard approx 2021 Neg Colonoscopy > 5 yrs ago at [facility] Denies OH,DM,CVA,Lung disease,renal dise ase Depression/Anxiety Surgical History Surgery Date(Month/Year) Partial hysterectomy Thyroidectomy
== END 2025-07-18 09:12 | disposition home or self-care (01) ==
LOC: HO.HMCH 08:29
DX: E03.9 Hypothyroidism, unspecified (principal); E78.5 Hyperlipidemia, unspecified; D17.9 Benign lipomatous neoplasm, unspecified; F32.A Depression, unspecified; R00.2 Palpitations; D18.00 Hemangioma unspecified site; Z78.0 Asymptomatic menopausal state

== ENCOUNTER → 2025-07-18 08:28 | Outpatient (BNVA) | payer MEDICARE, OTHER, SELFPAY | PROVIDERS: PCP Internal Medicine | DX: Z00.00 Encounter for general adult medical examination without abnormal findings (principal); E03.9 Hypothyroidism, unspecified; R00.2 Palpitations; E78.5 Hyperlipidemia, unspecified; D17.9 Benign lipomatous neoplasm, unspecified; F32.A Depression, unspecified; D18.00 Hemangioma unspecified site; Z78.0 Asymptomatic menopausal state | CPT/HCPCS: 96127; 99212 ==

== ENCOUNTER 2025-08-14 07:48 | Outpatient (REF) | payer MEDICARE, OTHER, SELFPAY ==
--- OUTSIDE RECORDS SUMMARY | 2024-08-03 05:20 | XMS_ITS ---
Author Organization [facility] Address [address] [place] [address] Care Team Providers Care Ready To Wear Department Manager Name Role Phone Armando Srinivasan MD Primary Care Provider Willie Simpson [phone] REASON FOR VISIT diverticulitis, rectal bleed Problems Problem Type SNOMED Code ICD Code Onset Dates Problem Status W/U Status Risk Notes Problem Diverticular disease of colon (875950258) Diverticulosis of large intestine without perforation or abscess without bleeding (K57.30) Active confirmed Encounters Encounter Location Date Provider Diagnosis [facility] [place] Outpatient [address] [place] [id number] 08/03/2024 Willie Amezcua Colon polyps K63.5 ; Rectal bleed K62.5 ; Diverticulosis of large intestine without perforation or abscess without bleeding K57.30 and Other hemorrhoids K64.8 Assessments Encounter Date Diagnosis (ICD Code) Assessment Notes Treatment Notes Treatment Clinical Notes Section Notes 08/03/2024 Colon polyps (ICD-10 - K63.5) 08/03/2024 Rectal bleed (ICD-10 - K62.5) 08/03/2024 Diverticulosis of large intestine without perforation or abscess without bleeding (ICD-10 - K57.30) 08/03/2024 Other hemorrhoids (ICD-10 - K64.8) Plan Of Treatment No Information Progress Notes * NIKHIL BEATTY MDOB:[birth year] (69 yo F)Acc No.[id number]:08/03/2024 COLON WITH MAC Patient: NIKHIL MURPHY Provider: Patrick Amezcua MD :1955 A ge:68 Y S ex:Female Date:08/03/2024 Address:[address] [place], [place] [id number] Pcp:Armando Srinivasan MD Subjective: * Chief Complaints: * D iverticulitis, rectal bleed Assessment: * Assessment: 1. C olon polyps - K63.5 (Primary) 2 . R ectal bleed - K62.5 ?3. D iverticulosis of large intestine without perforation or abscess without bleeding - K57.30 4 . O ther hemorrhoids - K64.8 Plan: * Procedure Codes: 4 5380 COLONOSCOPY AND [id number] INTRVL 3+YRS PTS CLNSCP [id number] RCMND FLW-UP 10 YRS DOCD Billing Information: * Procedure Codes: 69150 COLONOSCOPY AND BIOPSY. 0529F INTRVL 3+YRS PTS CLNSCP DOCD. 0528F RCMND FLW-UP 10 YRS DOCD. * The named appointment provid er may or may not be the originator of this progress note, and it is not deemed complete until electronically signed by the appointment provider. Sign off status: Pending * Provider: Patrick Amezcua MD Date: 10/03/2023 Generated for Timmy hawk/Toyin/Josetteitting on: 10/14/2024 08:13 AM EST
--- OUTSIDE RECORDS SUMMARY | 2025-08-14 08:13 | XMS_ITS | Patient Health Record ---
Author Organization [facility] Address [address] [place] [id number] Care Team Providers Care Ending Machine Operator Name Role Phone Armando Srinivasan MD Primary Care Provider Willie Simpson [phone] Allergies Allergen (clinical drug ingredient) Drug/Non Drug Allergy documented on EMR Reaction Allergy Type Onset Date Status acetaminophen / oxycodone Percocet Unknown Drug Allergy Active erythromycin Erythromycin Unknown Drug Allergy A ctive Reason For Referral No Information Medications Medication SIG (Take, Route, Frequency, Duration) Notes Start Date End Date Status Citalopram Hydrobromide 20 MG Tablet Oral; Duration: 90 Active Synthroid 100 MCG Tablet Oral; Duration: 90 Active Social History Tobacco Use: Social History Observation Description Date Details (start date - stop date) Never Smoker NA - NA Social History Drugs/Alcohol: Social Info Question Answer Notes Alcohol Screen Did you have a drink containing alcohol in the past year? No Points 0 Interpretation Negative Tobacco Use: Social Info Question Answer Notes Tobacco Use/Smoking Patient is a nonsmoker Additional Details Category Social Info Options Details Miscellaneous: Marital status: Occupation: retired Problems Problem Type SNOMED Code ICD Code Onset Dates Problem Status W/U Status Risk Notes Problem Diverticular disease of colon (236169745) Diverticulosis of large intestine without perforation or abscess without bleeding (K57.30) Active confirmed Problem Diverticulitis (00739888) Diverticulitis (K57.92) Active confirmed Problem Hemorrhage of rectum and anus (758018120) Rectal bleed (K62.5) Active confirmed Plan Of Treatment Pending Test Test Name Order Date Pathology 08/03/2024 Future Test Test Name Order Date COLONOSCOPY 04/19/2024 Insurance Providers Payer Name Payer Address Payer Phone Subscriber Number Group Number Insured Name Patient Relationship to Insured Coverage Start Date Coverage End Date MEDICARE OF [employer] [address] [place] [address] [id number] NIKHIL BEATTY Self - patient is the insured FOR LIFE [address] [place] [address] [id number] NIKHIL BEATTY Self - patient is the insured Medical (General) History Medical History History ICD Code Hypothyroidism Neg Cologuard approx 2021 Neg Colonoscopy > 5 yrs ago at [facility] Denies RI,DM,CVA,Lung disease,renal dise ase Depression/Anxiety Surgical History Surgery Date(Month/Year) Partial hysterectomy Thyroidectomy
[2025-08-14 11:21] LABS: MANUAL DIFF FLAG NO
[2025-08-14 11:42] LABS: Appearance Urine Clear; Glucose Urine UA Negative (Negative); PH 5.5 (5.0-9.0); Specific Gravity - Urine 1.020 (1.005-1.025)
[2025-08-14 12:08] LABS: Hematocrit 42.6 % (37.0-47.0); Hemoglobin 13.7 g/dl (12.0-16.0); Imm Gran Abs Auto 0.02 X10*3/uL (0.00-0.03); Imm Gran Pct Auto 0.4 % (0.0-0.4); Lymphocytes Absolute Auto 2.0 X10*3/uL (1.2-4.9); Mean Corpuscular HGB Conc 32.2 g/dl (31.0-35.0); Mean Corpuscular Hemoglobin 28.8 pg (27.0-33.0); Mean Corpuscular Volume 89.5 fL (80.0-98.0); NRBC Abs Auto 0.000 X10*3/uL (0.0-0.012); NRBC Pct Auto 0.0 /100WBC (0.0-0.2); Platelet Count 275 X10*3/uL (160-400); Red Blood Count 4.76 X10*6/uL (4.20-5.50); White Blood Count 5.7 X10*3/uL (4.8-10.8)
[2025-08-14 12:39] LABS: Alanine Aminotransferase 17 U/L (0-31); Albumin Level 4.4 g/dL (3.5-5.0); Alkaline Phosphatase 73 U/L (39-117); Anion Gap 13 (12-20); Aspartate Amino Transferase 22 U/L (5-31); Blood Urea Nitrogen 16 mg/dL (9-16); Calcium 9.4 mg/dL (8.4-10.2); Carbon Dioxide 25 mmol/L (22-29); Chloride 108 mmol/L (96-108); Cholesterol 207 mg/dL (<200); Estimated Glomerular Filt Rate > 60; HDL Cholesterol 60 mg/dL (>40); Potassium 4.1 mmol/L (3.3-5.1); Sodium 142 mmol/L (135-145); Total Protein 6.8 g/dL (6.5-8.0); Triglycerides 103 mg/dL (<150)
[2025-08-14 13:00] LABS: Free T4 (Free Thyroxine) 1.27 ng/dL (0.71-1.85)
== END 2025-08-14 07:49 | disposition home or self-care (01) ==
LOC: HO.WFDLDS 07:48
DX: Z13.220 Encounter for screening for lipoid disorders (principal); Z13.1 Encounter for screening for diabetes mellitus; M25.539 Pain in unspecified wrist; E03.9 Hypothyroidism, unspecified; D17.9 Benign lipomatous neoplasm, unspecified; F32.9 Major depressive disorder, single episode, unspecified; R00.2 Palpitations
CPT/HCPCS: 36415; 80053; 80061; 81003; 82306; 84439; 85025